=== PATIENT | male | born 1955 | race Caucasian/White ===

== ENCOUNTER 2017-10-12 09:18 | Inpatient (IN) | payer MEDICAID ==
[~2017-10-12] VITALS: Ht 177.8 cm; Wt 109.0 kg
[~2017-10-12 09:18] MED LIST: HYDR-565 PO; HYDR-569 PO; ONDA4TAB9 PO
[2017-10-12 09:40] LABS: BASOPHILS % (AUTO) 0.3 % (0-1); EOSINOPHILS # (AUTO) 0.1 X10'3 (0-0.9); EOSINOPHILS % (AUTO) 1.7 % (0-6); HEMATOCRIT 32.9 % (42.0-52.0); HEMOGLOBIN 11.3 g/dl (14.0-17.9); LYMPHOCYTES # (AUTO) 0.8 X10'3 (1.1-4.8); LYMPHOCYTES % (AUTO) 9.4 % (21-51); MEAN CORPUSCULAR HEMOGLOBIN 31.6 PG (27.0-31.0); MEAN CORPUSCULAR HGB CONC 34.4 % (33.0-36.5); MEAN PLATELET VOLUME 7.8 FL (7.4-10.4); MONOCYTES # (AUTO) 0.7 X10'3 (0-0.9); MONOCYTES % (AUTO) 8.4 % (2-12); NEUTROPHILS # (AUTO) 6.7 X10'3 (1.8-7.7); NEUTROPHILS % (AUTO) 80.2 % (42-75); PLATELET COUNT 176 X10'3 (140-440); RED BLOOD COUNT 3.58 X10'6 (4.70-6.10); RED CELL DISTRIBUTION WIDTH 13.3 % (11.5-14.5); WHITE BLOOD COUNT 8.4 X10'3 (4.5-11.0)
[2017-10-12] MEDS ORDERED: dextrose 5%-normal saline 1,000 ML IV ONE (09:40)
[2017-10-12 09:50] LABS: INR 1.1 INR; PARTIAL THROMBOPLASTIN TIME 28 SECONDS (22-32); PROTHROMBIN TIME 11.1 SECONDS (9.0-12.0)
[2017-10-12 09:57] LABS: ALANINE AMINOTRANSFERASE 20 U/L (12-78); ALBUMIN 3.6 G/DL (3.4-5.0); ALBUMIN/GLOBULIN RATIO 0.9 (1.1-1.5); ALKALINE PHOSPHATASE 50 IU/L (46-116); ANION GAP 12 (8-16); ASPARTATE AMINO TRANSFERASE 37 U/L (10-37); BILIRUBIN,TOTAL 1.7 MG/DL (0.1-1.0); BLOOD UREA NITROGEN 49 MG/DL (7-18); BUN/CREATININE RATIO 29.7 (5.4-32.0); CALCIUM 9.1 MG/DL (8.5-10.1); CHLORIDE 98 MMOL/L (99-107); CREATININE 1.65 MG/DL (0.60-1.10); GLUCOSE 129 MG/DL (70-104); POTASSIUM 4.5 MMOL/L (3.5-5.1); SODIUM 132 MMOL/L (135-145); TOTAL PROTEIN 7.6 G/DL (6.4-8.2); eGFR 43 ML/MIN
[2017-10-12] MEDS ORDERED: LISI40TA4 PO (10:42)
[2017-10-12] MEDS ORDERED: GLIP10TA11 PO (10:42)
[2017-10-12] MEDS ORDERED: METO100T7 PO (10:42)
[2017-10-12] MEDS ORDERED: METF500T PO (10:42)
[2017-10-12] MEDS ORDERED: ATOR20TA PO (10:42)
[2017-10-12] MEDS ORDERED: AMLO2.5T2 PO (10:42)
[2017-10-12] MEDS ORDERED: ondansetron/PF 4mg/2ml inj IV PRN (12:45)
[2017-10-12] MEDS ORDERED: HYDROmorphone 1 mg/ml syringe IV PRN (12:45)
[2017-10-12] MEDS ORDERED: potassium Cl 40MEQ/NS 500ml 500 ML IV PRN ×2 (12:45)
[2017-10-12] MEDS ORDERED: magnesium 4gm in 100ml NS 100 ML IV PRN (12:45)
[2017-10-12] MEDS ORDERED: HYDROcodone/acetaminophen 5mg/325mg tablet PO PRN (12:45)
[2017-10-12] MEDS ORDERED: acetaminophen 325mg tablet PO PRN (12:45)
[2017-10-12] MEDS ORDERED: potassium Cl 20 mEq SR tablet PO PRN ×2 (12:45)
[2017-10-12] MEDS ORDERED: magnesium Cl slow-release 64mg tablet PO PRN (12:45)
[2017-10-12] MEDS ORDERED: magnesium 1gm/100ml D5W IVPB 100 ML IV PRN (12:45)
[2017-10-12 14:00] VITALS: BP 92/69
[2017-10-12] MEDS ORDERED: MESSAGE TO PHARMACY PO ONE (15:05)
[2017-10-12] MEDS ORDERED: HYDROcodone/acetaminophen 10/325mg tab PO PRN (15:05)
[2017-10-12] MEDS ORDERED: dextrose 50%-water 50ml dispensing syringe IV PRN ×2 (15:05)
[2017-10-12] MEDS ORDERED: glucagon, human recombinant 1mg kit SUBCUT PRN (15:05)
[2017-10-12] MEDS ORDERED: dextrose ORAL solution 15 GM/59 ML bottle PO PRN ×2 (15:05)
[2017-10-12 15:11] LABS: HEMOGLOBIN A1C 7.3 % (4.5-6.2)
[2017-10-12] MEDS: normal saline 1000ml 1,000 ML IV SCH (16:54)
[2017-10-12 18:00] VITALS: BP 135/82
[2017-10-12] MEDS: HYDROcodone/acetaminophen 10/325mg tab PO PRN ×2 (18:59→23:07)
[2017-10-12 20:00] VITALS: BP 138/82
[2017-10-12] MEDS: insulin glargine (Lantus) pen - multi-dose SQ SCH (21:00)
[2017-10-12] MEDS: metoprolol tartrate 50mg tablet PO SCH (21:08)
[2017-10-12] MEDS: magnesium hydroxide 30ml (MOM) UD suspension PO PRN (21:08)
[2017-10-12 22:00] VITALS: BP 149/74
[2017-10-13] VITALS (7 sets, daily range): BP systolic 103–127; BP diastolic 56–75
[2017-10-13] MEDS: HYDROcodone/acetaminophen 10/325mg tab PO PRN ×2 (05:25→21:06)
[2017-10-13 07:08] LABS: BASOPHILS % (AUTO) 0.8 % (0-1); EOSINOPHILS # (AUTO) 0.2 X10'3 (0-0.9); HEMATOCRIT 29.4 % (42.0-52.0); HEMOGLOBIN 10.1 g/dl (14.0-17.9); LYMPHOCYTES # (AUTO) 1.1 X10'3 (1.1-4.8); LYMPHOCYTES % (AUTO) 17.6 % (21-51); MEAN CORPUSCULAR HEMOGLOBIN 31.7 PG (27.0-31.0); MEAN CORPUSCULAR HGB CONC 34.2 % (33.0-36.5); MEAN CORPUSCULAR VOLUME 92.4 FL (78-98); MEAN PLATELET VOLUME 8.1 FL (7.4-10.4); MONOCYTES # (AUTO) 0.7 X10'3 (0-0.9); MONOCYTES % (AUTO) 10.5 % (2-12); NEUTROPHILS # (AUTO) 4.4 X10'3 (1.8-7.7); NEUTROPHILS % (AUTO) 68.1 % (42-75); PLATELET COUNT 163 X10'3 (140-440); RED BLOOD COUNT 3.18 X10'6 (4.70-6.10); RED CELL DISTRIBUTION WIDTH 13.2 % (11.5-14.5); WHITE BLOOD COUNT 6.4 X10'3 (4.5-11.0)
[2017-10-13 07:41] LABS: ANION GAP 11 (8-16); BLOOD UREA NITROGEN 48 MG/DL (7-18); BUN/CREATININE RATIO 27.6 (5.4-32.0); CALCIUM 8.4 MG/DL (8.5-10.1); CHLORIDE 100 MMOL/L (99-107); CREATININE 1.74 MG/DL (0.60-1.10); GLUCOSE 230 MG/DL (70-104); MAGNESIUM 1.8 MG/DL (1.5-2.4); POTASSIUM 4.8 MMOL/L (3.5-5.1); SODIUM 134 MMOL/L (135-145); TOTAL CARBON DIOXIDE 23.3 MMOL/L (24-32); eGFR 40 ML/MIN
[2017-10-13] MEDS: K and/or MAG REPLACEMENT MC SCH (08:00)
[2017-10-13] MEDS: insulin Lispro (HumaLOG) vial - multi-dose SQ SCH ×3 (09:00→18:57)
[2017-10-13] MEDS: atorvastatin 20mg tablet PO SCH (09:02)
[2017-10-13] MEDS: metoprolol tartrate 50mg tablet PO SCH ×2 (09:03→19:58)
[2017-10-13] MEDS: amLODIPine 2.5mg tablet PO SCH (09:03)
[2017-10-13] MEDS: lisinopril 20mg tablet PO SCH (09:03)
[2017-10-13] MEDS: magnesium hydroxide 30ml (MOM) UD suspension PO PRN (19:57)
[2017-10-13] MEDS: insulin glargine (Lantus) pen - multi-dose SQ SCH (21:09)
[2017-10-14] MEDS: HYDROcodone/acetaminophen 10/325mg tab PO PRN (04:56)
[2017-10-14 05:59] LABS: BASOPHILS # (AUTO) 0.1 X10'3 (0-0.2); BASOPHILS % (AUTO) 1.3 % (0-1); EOSINOPHILS # (AUTO) 0.4 X10'3 (0-0.9); EOSINOPHILS % (AUTO) 5.6 % (0-6); HEMATOCRIT 31.1 % (42.0-52.0); HEMOGLOBIN 10.9 g/dl (14.0-17.9); LYMPHOCYTES % (AUTO) 28.2 % (21-51); MEAN CORPUSCULAR HEMOGLOBIN 32.1 PG (27.0-31.0); MEAN CORPUSCULAR HGB CONC 34.9 % (33.0-36.5); MEAN PLATELET VOLUME 8.5 FL (7.4-10.4); MONOCYTES # (AUTO) 0.7 X10'3 (0-0.9); MONOCYTES % (AUTO) 10.3 % (2-12); NEUTROPHILS % (AUTO) 54.6 % (42-75); PLATELET COUNT 199 X10'3 (140-440); RED BLOOD COUNT 3.38 X10'6 (4.70-6.10); RED CELL DISTRIBUTION WIDTH 12.4 % (11.5-14.5); WHITE BLOOD COUNT 7.2 X10'3 (4.5-11.0)
[2017-10-14 06:40] LABS: ALBUMIN 3.3 G/DL (3.4-5.0); ANION GAP 9 (8-16); BLOOD UREA NITROGEN 50 MG/DL (7-18); BUN/CREATININE RATIO 32.7 (5.4-32.0); CALCIUM 8.7 MG/DL (8.5-10.1); CHLORIDE 99 MMOL/L (99-107); CREATININE 1.53 MG/DL (0.60-1.10); GLUCOSE 132 MG/DL (70-104); MAGNESIUM 1.9 MG/DL (1.5-2.4); POTASSIUM 4.9 MMOL/L (3.5-5.1); SODIUM 132 MMOL/L (135-145); TOTAL CARBON DIOXIDE 23.6 MMOL/L (24-32); eGFR 47 ML/MIN
[2017-10-14 07:13] VITALS: BP 135/77
[2017-10-14 08:00] VITALS: BP_SYST 114; BP_SYST 118; BP_SYST 132; BP_DIAS 66; BP_DIAS 67; BP_DIAS 75
[2017-10-14] MEDS: K and/or MAG REPLACEMENT MC SCH (08:00)
[2017-10-14] MEDS: amLODIPine 2.5mg tablet PO SCH (08:21)
[2017-10-14] MEDS: metoprolol tartrate 50mg tablet PO SCH ×2 (08:21→19:11)
[2017-10-14] MEDS: atorvastatin 20mg tablet PO SCH (08:21)
[2017-10-14] MEDS: lisinopril 20mg tablet PO SCH (08:22)
[2017-10-14] MEDS: insulin Lispro (HumaLOG) vial - multi-dose SQ SCH ×3 (08:50→19:11)
[2017-10-14 10:00] VITALS: BP 118/67
[2017-10-14] MEDS: normal saline 1000ml 1,000 ML IV SCH (12:43)
[2017-10-14 18:00] VITALS: BP 145/86
[2017-10-14] MEDS: magnesium hydroxide 30ml (MOM) UD suspension PO PRN (19:19)
[2017-10-14 20:00] VITALS: BP_SYST 100; BP_SYST 122; BP_DIAS 60; BP_DIAS 71
[2017-10-14] MEDS: insulin glargine (Lantus) pen - multi-dose SQ SCH (20:56)
[2017-10-14 22:00] VITALS: BP 122/71
[2017-10-15] MEDS: HYDROcodone/acetaminophen 10/325mg tab PO PRN (04:39)
[2017-10-15 06:00] VITALS: BP 156/81
[2017-10-15 06:19] LABS: ALBUMIN 3.1 G/DL (3.4-5.0); ANION GAP 6 (8-16); BLOOD UREA NITROGEN 42 MG/DL (7-18); BUN/CREATININE RATIO 30.9 (5.4-32.0); CHLORIDE 100 MMOL/L (99-107); CREATININE 1.36 MG/DL (0.60-1.10); GLUCOSE 148 MG/DL (70-104); MAGNESIUM 1.8 MG/DL (1.5-2.4); SODIUM 133 MMOL/L (135-145); TOTAL CARBON DIOXIDE 27.3 MMOL/L (24-32); eGFR 53 ML/MIN
[2017-10-15 06:22] LABS: BASOPHILS # (AUTO) 0.1 X10'3 (0-0.2); BASOPHILS % (AUTO) 1.3 % (0-1); EOSINOPHILS # (AUTO) 0.4 X10'3 (0-0.9); EOSINOPHILS % (AUTO) 5.6 % (0-6); HEMATOCRIT 30.2 % (42.0-52.0); HEMOGLOBIN 10.6 g/dl (14.0-17.9); LYMPHOCYTES # (AUTO) 1.6 X10'3 (1.1-4.8); LYMPHOCYTES % (AUTO) 24.3 % (21-51); MEAN CORPUSCULAR HEMOGLOBIN 32.5 PG (27.0-31.0); MEAN CORPUSCULAR HGB CONC 35.1 % (33.0-36.5); MEAN CORPUSCULAR VOLUME 92.6 FL (78-98); MEAN PLATELET VOLUME 7.9 FL (7.4-10.4); MONOCYTES # (AUTO) 0.7 X10'3 (0-0.9); NEUTROPHILS # (AUTO) 3.7 X10'3 (1.8-7.7); NEUTROPHILS % (AUTO) 57.8 % (42-75); PLATELET COUNT 188 X10'3 (140-440); RED BLOOD COUNT 3.26 X10'6 (4.70-6.10); RED CELL DISTRIBUTION WIDTH 11.8 % (11.5-14.5); WHITE BLOOD COUNT 6.5 X10'3 (4.5-11.0)
[2017-10-15] MEDS: atorvastatin 20mg tablet PO SCH (07:54)
[2017-10-15] MEDS: amLODIPine 2.5mg tablet PO SCH (07:55)
[2017-10-15] MEDS: lisinopril 20mg tablet PO SCH (07:55)
[2017-10-15] MEDS: metoprolol tartrate 50mg tablet PO SCH (07:55)
[2017-10-15] MEDS: K and/or MAG REPLACEMENT MC SCH (08:00)
[2017-10-15] MEDS: insulin Lispro (HumaLOG) vial - multi-dose SQ SCH ×2 (08:55→14:12)
[2017-10-15] MEDS ORDERED: GLIP5TAB13 PO (10:40)
[2017-10-15] MEDS ORDERED: GABA100C PO (10:40)
== END 2017-10-15 15:00 | disposition home health service (06) | DRG 420 ==
LOC: ER 09:19 → ED HOLD 12:43 → ORTHO 4S 14:04
PROVIDERS: ADMIT Internal Medicine; ATTEND Family Medicine
DX: E11.649 Type 2 diabetes mellitus with hypoglycemia without coma (principal); E78.00 Pure hypercholesterolemia, unspecified; E78.5 Hyperlipidemia, unspecified; I10 Essential (primary) hypertension; M54.30 Sciatica, unspecified side; S40.011A Contusion of right shoulder, initial encounter; W01.0XXA Fall on same level from slipping, tripping and stumbling without subsequent striking against object, initial encounter; R29.6 Repeated falls; S42.201D Unspecified fracture of upper end of right humerus, subsequent encounter for fracture with routine healing; Y93.89 Activity, other specified; Y92.89 Other specified places as the place of occurrence of the external cause; Y99.8 Other external cause status; Z79.899 Other long term (current) drug therapy; Z79.84 Long term (current) use of oral hypoglycemic drugs
CPT/HCPCS: 36415; 70450; 73020; 73030; 73502; 80048; 80053; 82948; 83036; 83735; 85025; 85610; 85730; 87070; 96365; 97110; 97116; 97161; 99285; A6258; J1815; J7030; J7042

== ENCOUNTER 2020-01-23 10:55 | Emergency (ER) | payer MEDICAID ==
[~2020-01-23] VITALS: Ht 185.4 cm; Wt 145.4 kg
[~2020-01-23 10:55] MED LIST changes: +AMLO2.5T2 PO; +ATOR20TA PO; +GABA100C PO; +GLIP5TAB13 PO; -HYDR-565 PO; -HYDR-569 PO; +LISI40TA4 PO; +METF500T PO; +METO100T7 PO; -ONDA4TAB9 PO
--- NOTE | 2020-01-23 11:20 | NUR ---
patient eating turkey sandwhich and drinking orange juice and milk, aware
--- NOTE | 2020-01-23 11:32 | NUR ---
patient ate whole turkey sandwhich, 120 ml oj, 240 ml milk
--- NOTE | 2020-01-23 11:33 | NUR ---
to ct scan
[2020-01-23 11:53] LABS: BASOPHILS # (AUTO) 0.1 X10'3 (0-0.2); BASOPHILS % (AUTO) 0.8 % (0-1); EOSINOPHILS # (AUTO) 0.2 X10'3 (0-0.9); EOSINOPHILS % (AUTO) 2.6 % (0-6); HEMATOCRIT 38.9 % (42.0-52.0); HEMOGLOBIN 13.3 g/dl (14.0-17.9); LYMPHOCYTES # (AUTO) 1.3 X10'3 (1.1-4.8); LYMPHOCYTES % (AUTO) 16.2 % (21-51); MEAN CORPUSCULAR HEMOGLOBIN 31.8 PG (27.0-31.0); MEAN CORPUSCULAR HGB CONC 34.2 g/dL (33.0-36.5); MEAN PLATELET VOLUME 7.8 FL (7.4-10.4); MONOCYTES # (AUTO) 0.4 X10'3 (0-0.9); MONOCYTES % (AUTO) 5.7 % (2-12); NEUTROPHILS # (AUTO) 5.9 X10'3 (1.8-7.7); NEUTROPHILS % (AUTO) 74.7 % (42-75); PLATELET COUNT 199 X10'3 (140-440); RED BLOOD COUNT 4.18 X10'6 (4.70-6.10); RED CELL DISTRIBUTION WIDTH 13.6 % (11.5-14.5); WHITE BLOOD COUNT 7.8 X10'3 (4.5-11.0)
[2020-01-23 12:02] LABS: CLARITY,URINE CLEAR (Clear); COLOR,URINE YELLOW (Yellow); GLUCOSE, URINE NEGATIVE (Neg); KETONES,URINE 15 mg/dl (Neg); LEUKOCYTE ESTERASE ,URINE NEGATIVE (Neg); NITRITES, URINE NEGATIVE (Neg); OCCULT BLOOD,URINE NEGATIVE (Neg); PH,URINE 5.5 (4.8-8.0); PROTEIN,URINE TRACE mg/dl (Neg)
[2020-01-23 12:04] LABS: ALANINE AMINOTRANSFERASE 24 U/L (12-78); ALBUMIN 4.1 G/DL (3.4-5.0); ALBUMIN/GLOBULIN RATIO 1.2 (1.1-1.5); ALKALINE PHOSPHATASE 49 IU/L (46-116); ANION GAP 13 (8-16); ASPARTATE AMINO TRANSFERASE 23 U/L (10-37); BILIRUBIN,TOTAL 0.8 MG/DL (0.1-1.0); BLOOD UREA NITROGEN 25 MG/DL (7-18); BUN/CREATININE RATIO 15.8 (5.4-32.0); CALCIUM 9.2 MG/DL (8.5-10.1); CHLORIDE 106 MMOL/L (99-107); CREATININE 1.58 MG/DL (0.60-1.10); GLUCOSE 77 MG/DL (70-104); POTASSIUM 4.7 MMOL/L (3.5-5.1); SODIUM 142 MMOL/L (135-145); TOTAL CARBON DIOXIDE 22.6 MMOL/L (24-32); TOTAL PROTEIN 7.5 G/DL (6.4-8.2); eGFR 45 ML/MIN
[2020-01-23 12:32] LABS: UA COLLECTION TYPE CLN CATCH MIDSTREAM
[2020-01-23 12:34] LABS: MUCUS STRANDS FEW /LPF (Neg)
[2020-01-23 12:35] LABS: SQUAMOUS EPITHELIAL CELL,UR FEW /LPF (FEW)
[2020-01-23 12:37] LABS: BACTERIA,URINE NONE SEEN /HPF (Neg); RBC,URINE NONE SEEN /HPF (0-2); WBC,URINE 0-4 /HPF (0-4)
--- NOTE | 2020-01-23 14:39 | NUR ---
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
[2020-01-23 14:54] VITALS: BP 159/89
== END 2020-01-23 14:45 | disposition home or self-care (01) ==
LOC: ER 10:56
DX: E11.649 Type 2 diabetes mellitus with hypoglycemia without coma (principal); E78.00 Pure hypercholesterolemia, unspecified; I10 Essential (primary) hypertension; Z79.899 Other long term (current) drug therapy
CPT/HCPCS: 36415; 70450; 80053; 81001; 82948; 85025; 99285

== ENCOUNTER 2020-08-18 02:14 | Emergency (ER) | payer MEDICAID ==
[~2020-08-18] VITALS: Ht 185.4 cm; Wt 138.0 kg
[~2020-08-18 02:14] MED LIST changes: +LISI40TA13 PO; -LISI40TA4 PO
[2020-08-18] MEDS ORDERED: DOCU100C40 PO (03:14)
[2020-08-18] MEDS ORDERED: ASPI-1265 PO (03:14)
[2020-08-18] MEDS ORDERED: Dextrose 10%-water IV solution 1,000 ML IV ONE (03:40)
[2020-08-18 04:25] LABS: BASOPHILS # (AUTO) 0.1 X10'3 (0-0.2); BASOPHILS % (AUTO) 1.5 % (0-1); EOSINOPHILS # (AUTO) 0.5 X10'3 (0-0.9); EOSINOPHILS % (AUTO) 7.8 % (0-6); HEMATOCRIT 39.6 % (42.0-52.0); HEMOGLOBIN 13.3 g/dl (14.0-17.9); LYMPHOCYTES # (AUTO) 1.6 X10'3 (1.1-4.8); LYMPHOCYTES % (AUTO) 24.3 % (21-51); MEAN CORPUSCULAR HEMOGLOBIN 31.8 PG (27.0-31.0); MEAN CORPUSCULAR HGB CONC 33.7 g/dL (33.0-36.5); MEAN CORPUSCULAR VOLUME 94.4 FL (78-98); MEAN PLATELET VOLUME 8.1 FL (7.4-10.4); MONOCYTES # (AUTO) 0.6 X10'3 (0-0.9); MONOCYTES % (AUTO) 9.2 % (2-12); NEUTROPHILS # (AUTO) 3.9 X10'3 (1.8-7.7); NEUTROPHILS % (AUTO) 57.2 % (42-75); PLATELET COUNT 176 X10'3 (140-440); RED BLOOD COUNT 4.19 X10'6 (4.70-6.10); RED CELL DISTRIBUTION WIDTH 14.1 % (11.5-14.5); WHITE BLOOD COUNT 6.7 X10'3 (4.5-11.0)
[2020-08-18 04:27] VITALS: BP 127/83
[2020-08-18 04:31] LABS: CLARITY,URINE CLEAR (Clear); COLOR,URINE YELLOW (Yellow); GLUCOSE, URINE NEGATIVE (Neg); KETONES,URINE NEGATIVE (Neg); LEUKOCYTE ESTERASE ,URINE NEGATIVE (Neg); NITRITES, URINE NEGATIVE (Neg); OCCULT BLOOD,URINE NEGATIVE (Neg); PROTEIN,URINE TRACE mg/dl (Neg); UROBILINOGEN,URINE 0.2 E.U/dL (0.2-1.0)
[2020-08-18 04:40] LABS: ALANINE AMINOTRANSFERASE 22 U/L (12-78); ALBUMIN 4.1 G/DL (3.4-5.0); ALBUMIN/GLOBULIN RATIO 1.1 (1.1-1.5); ALKALINE PHOSPHATASE 40 IU/L (46-116); ANION GAP 14 (8-16); ASPARTATE AMINO TRANSFERASE 22 U/L (10-37); BILIRUBIN,TOTAL 0.8 MG/DL (0.1-1.0); BLOOD UREA NITROGEN 33 MG/DL (7-18); BUN/CREATININE RATIO 18.8 (5.4-32.0); CHLORIDE 104 MMOL/L (99-107); CREATININE 1.76 MG/DL (0.60-1.10); GLUCOSE 87 MG/DL (70-104); LIPASE 94 U/L (73-393); POTASSIUM 4.2 MMOL/L (3.5-5.1); SODIUM 141 MMOL/L (135-145); TOTAL PROTEIN 7.9 G/DL (6.4-8.2); eGFR 39 ML/MIN
[2020-08-18 04:51] LABS: UA COLLECTION TYPE NON-SPECIFIED
[2020-08-18 04:52] LABS: WBC,URINE 0-4 /HPF (0-4)
[2020-08-18 04:53] LABS: BACTERIA,URINE NONE SEEN /HPF (Neg); HYALINE CASTS 0-3 /LPF (NEGATIVE); MUCUS STRANDS FEW /LPF (Neg); RBC,URINE NONE SEEN /HPF (0-2); SQUAMOUS EPITHELIAL CELL,UR FEW /LPF (FEW)
== END 2020-08-18 06:01 | disposition left against medical advice (07) ==
LOC: ER 02:15
DX: E11.649 Type 2 diabetes mellitus with hypoglycemia without coma (principal); E78.00 Pure hypercholesterolemia, unspecified; I10 Essential (primary) hypertension; E11.9 Type 2 diabetes mellitus without complications; Z79.82 Long term (current) use of aspirin; Z79.899 Other long term (current) drug therapy
CPT/HCPCS: 36415; 80053; 81001; 82948; 83690; 85025; 96365; 96366; 99284

== ENCOUNTER 2020-11-12 23:44 | Emergency (ER) | payer MEDICAID ==
[~2020-11-12] VITALS: Ht 185.4 cm; Wt 136.4 kg
[~2020-11-12 23:44] MED LIST changes: +ASPI-1265 PO; +DOCU100C40 PO; -GABA100C PO
[2020-11-13 03:13] VITALS: BP 149/90
== END 2020-11-13 03:14 | disposition home or self-care (01) ==
LOC: ER 23:45
DX: S80.02XA Contusion of left knee, initial encounter (principal); S80.212A Abrasion, left knee, initial encounter; R07.89 Other chest pain; E78.00 Pure hypercholesterolemia, unspecified; I10 Essential (primary) hypertension; E11.9 Type 2 diabetes mellitus without complications; Z79.82 Long term (current) use of aspirin; Z79.899 Other long term (current) drug therapy; W01.0XXA Fall on same level from slipping, tripping and stumbling without subsequent striking against object, initial encounter; Y93.89 Activity, other specified; Y92.89 Other specified places as the place of occurrence of the external cause; Y99.8 Other external cause status
CPT/HCPCS: 71046; 73080; 99284

== ENCOUNTER 2022-06-21 23:53 | Emergency (ER) | payer MEDICAID ==
[~2022-06-21] VITALS: Ht 185.4 cm; Wt 115.9 kg
[2022-06-22 01:54] LABS: CLARITY,URINE CLEAR (Clear); COLOR,URINE STRAW (Yellow); GLUCOSE, URINE NEGATIVE (Neg); KETONES,URINE NEGATIVE (Neg); LEUKOCYTE ESTERASE ,URINE NEGATIVE (Neg); NITRITES, URINE NEGATIVE (Neg); OCCULT BLOOD,URINE NEGATIVE (Neg); PH,URINE 6.5 (4.8-8.0); PROTEIN,URINE NEGATIVE (Neg); UROBILINOGEN,URINE 0.2 E.U/dL (0.2-1.0)
[2022-06-22 01:58] LABS: UA COLLECTION TYPE URINAL
--- NOTE | 2022-06-22 01:58 | NUR ---
Artem [phone]
[2022-06-22] MEDS ORDERED: DEXTROSE 15 GM of carb/4 tabs (each vial/BOTTLE has 4 tablets) ONE ×2 (02:38→02:39)
[2022-06-22 02:56] LABS: BASOPHILS # (AUTO) 0.1 X10'3 (0-0.2); BASOPHILS % (AUTO) 0.9 % (0-1); EOSINOPHILS # (AUTO) 0.2 X10'3 (0-0.9); EOSINOPHILS % (AUTO) 2.8 % (0-6); HEMATOCRIT 39.9 % (42.0-52.0); HEMOGLOBIN 13.5 g/dl (14.0-17.9); LYMPHOCYTES # (AUTO) 2.1 X10'3 (1.1-4.8); LYMPHOCYTES % (AUTO) 25.8 % (21-51); MEAN CORPUSCULAR HEMOGLOBIN 31.3 PG (27.0-31.0); MEAN CORPUSCULAR HGB CONC 33.7 g/dL (33.0-36.5); MEAN CORPUSCULAR VOLUME 92.9 FL (78-98); MEAN PLATELET VOLUME 7.8 FL (7.4-10.4); MONOCYTES # (AUTO) 0.6 X10'3 (0-0.9); MONOCYTES % (AUTO) 7.2 % (2-12); NEUTROPHILS # (AUTO) 5.1 X10'3 (1.8-7.7); NEUTROPHILS % (AUTO) 63.3 % (42-75); PLATELET COUNT 187 X10'3 (140-440); RED CELL DISTRIBUTION WIDTH 13.5 % (11.5-14.5); WHITE BLOOD COUNT 8.1 X10'3 (4.5-11.0)
[2022-06-22 03:00] VITALS: BP 133/66
[2022-06-22 03:07] LABS: ALANINE AMINOTRANSFERASE 21 U/L (12-78); ALBUMIN 4.2 G/DL (3.4-5.0); ALBUMIN/GLOBULIN RATIO 1.1 (1.1-1.5); ALKALINE PHOSPHATASE 62 IU/L (46-116); ANION GAP 14 (8-16); ASPARTATE AMINO TRANSFERASE 19 U/L (10-37); BILIRUBIN,TOTAL 0.7 MG/DL (0.1-1.0); BLOOD UREA NITROGEN 31 MG/DL (7-18); BUN/CREATININE RATIO 19.6 (10.0-20.0); CALCIUM 8.9 MG/DL (8.5-10.1); CHLORIDE 105 MMOL/L (99-107); CREATININE 1.58 MG/DL (0.60-1.10); GLUCOSE 70 MG/DL (70-104); POTASSIUM 4.4 MMOL/L (3.5-5.1); SODIUM 140 MMOL/L (135-145); TOTAL CARBON DIOXIDE 21.5 MMOL/L (24-32); TOTAL PROTEIN 8.1 G/DL (6.4-8.2); eGFR 44 ML/MIN
[2022-06-22 03:17] LABS: HEMOGLOBIN A1C 6.1 % (4.5-6.2)
== END 2022-06-22 05:49 | disposition home or self-care (01) ==
LOC: ER 23:54
DX: E11.649 Type 2 diabetes mellitus with hypoglycemia without coma (principal); I10 Essential (primary) hypertension; E78.00 Pure hypercholesterolemia, unspecified; Z79.899 Other long term (current) drug therapy; Z79.1 Long term (current) use of non-steroidal anti-inflammatories (NSAID); Z79.82 Long term (current) use of aspirin
CPT/HCPCS: 36415; 80053; 81003; 82948; 83036; 85025; 99284

== ENCOUNTER 2023-11-20 23:50 | Emergency (ER) | payer MEDICARE, MEDICAID ==
[~2023-11-20] VITALS: Ht 182.9 cm; Wt 125.0 kg
[~2023-11-20 23:50] MED LIST changes: -AMLO2.5T2 PO; -ASPI-1265 PO; +FLO0.1T PO; -GLIP5TAB13 PO; +LISI2.5T14 PO; -LISI40TA13 PO; -METF500T PO; +METO-395 PO; -METO100T7 PO; +MIDO5TAB4 PO; +SITA50TA PO; +THIA100T66 PO
[2023-11-21 00:34] LABS: BASOPHILS # (AUTO) 0.2 X10'3 (0-0.2); BASOPHILS % (AUTO) 1.3 % (0-1); EOSINOPHILS # (AUTO) 1.1 X10'3 (0-0.9); EOSINOPHILS % (AUTO) 9.1 % (0-6); HEMATOCRIT 36.3 % (42.0-52.0); HEMOGLOBIN 12.2 g/dl (14.0-17.9); LYMPHOCYTES # (AUTO) 2.1 X10'3 (1.1-4.8); LYMPHOCYTES % (AUTO) 18.1 % (21-51); MEAN CORPUSCULAR HEMOGLOBIN 29.3 PG (27.0-31.0); MEAN CORPUSCULAR HGB CONC 33.7 g/dL (33.0-36.5); MEAN CORPUSCULAR VOLUME 86.9 FL (78-98); MEAN PLATELET VOLUME 8.1 FL (7.4-10.4); MONOCYTES # (AUTO) 1.2 X10'3 (0-0.9); MONOCYTES % (AUTO) 9.9 % (2-12); NEUTROPHILS # (AUTO) 7.3 X10'3 (1.8-7.7); NEUTROPHILS % (AUTO) 61.6 % (42-75); PLATELET COUNT 173 X10'3 (140-440); RED BLOOD COUNT 4.18 X10'6 (4.70-6.10); RED CELL DISTRIBUTION WIDTH 13.7 % (11.5-14.5); WHITE BLOOD COUNT 11.9 X10'3 (4.5-11.0)
[2023-11-21 01:15] LABS: ALANINE AMINOTRANSFERASE 12 U/L (12-78); ALBUMIN 4.2 G/DL (3.4-5.0); ALBUMIN/GLOBULIN RATIO 1.2 (1.1-1.5); ALKALINE PHOSPHATASE 53 IU/L (46-116); ANION GAP 14 (8-16); ASPARTATE AMINO TRANSFERASE 22 U/L (10-37); BILIRUBIN,TOTAL 0.7 MG/DL (0.1-1.0); BLOOD UREA NITROGEN 54 MG/DL (7-18); BUN/CREATININE RATIO 19.8 (10.0-20.0); CALCIUM 8.6 MG/DL (8.5-10.1); CHLORIDE 101 MMOL/L (99-107); CREATININE 2.73 MG/DL (0.60-1.10); GLUCOSE 111 MG/DL (70-104); SODIUM 135 MMOL/L (135-145); TOTAL CARBON DIOXIDE 20.5 MMOL/L (24-32); TOTAL PROTEIN 7.6 G/DL (6.4-8.2); eCRCL 29 ML/MIN; eGFR 23 ML/MIN
[2023-11-21 01:16] LABS: PRO BRAIN NATRIURETIC PEPTIDE 260 PG/ML (0-125)
[2023-11-21 01:21] LABS: POTASSIUM 4.6 MMOL/L (3.5-5.1)
[2023-11-21 01:47] LABS: BILIRUBIN,URINE NEGATIVE (Neg); CLARITY,URINE CLEAR (Clear); COLOR,URINE YELLOW (Yellow); GLUCOSE, URINE 500 mg/dl (Neg); KETONES,URINE TRACE mg/dl (Neg); LEUKOCYTE ESTERASE ,URINE NEGATIVE (Neg); NITRITES, URINE NEGATIVE (Neg); OCCULT BLOOD,URINE NEGATIVE (Neg); PH,URINE 5.5 (4.8-8.0); PROTEIN,URINE NEGATIVE (Neg); UROBILINOGEN,URINE 0.2 E.U/dL (0.2-1.0)
[2023-11-21 01:49] LABS: UA COLLECTION TYPE URINAL
[2023-11-21] MEDS: normal saline 1000ml 1,000 ML IV ONE (02:01)
[2023-11-21] MEDS: acetaminophen 325mg tablet PO ONE (02:09)
[2023-11-21 02:52] VITALS: BP 113/65; PULSE 81; RESP 13; TEMP 97.7; O2SAT 98
[2023-11-21 03:34] LABS: PLATELET ESTIMATE NORMAL; TOTAL CELLS COUNTED 100
== END 2023-11-21 02:54 | disposition home or self-care (01) ==
LOC: ER 23:50
DX: S93.402A Sprain of unspecified ligament of left ankle, initial encounter (principal); E78.00 Pure hypercholesterolemia, unspecified; I10 Essential (primary) hypertension; E11.9 Type 2 diabetes mellitus without complications; E86.0 Dehydration; Z79.899 Other long term (current) drug therapy; W19.XXXA Unspecified fall, initial encounter; Y93.89 Activity, other specified; Y92.89 Other specified places as the place of occurrence of the external cause; Y99.8 Other external cause status
CPT/HCPCS: 36415; 71045; 73610; 80053; 81003; 82948; 83880; 84484; 85007; 85025; 93005; 96360; 99285; J7030; L4360

== ENCOUNTER 2024-01-30 10:05 | Inpatient (IN) | payer MEDICARE, MEDICAID ==
[~2024-01-30] VITALS: Ht 182.9 cm; Wt 119.0 kg
[2024-01-30 11:00] LABS: BILIRUBIN,URINE NEGATIVE (Neg); CLARITY,URINE CLEAR (Clear); COLOR,URINE YELLOW (Yellow); GLUCOSE, URINE >=1000 mg/dl (Neg); KETONES,URINE TRACE mg/dl (Neg); LEUKOCYTE ESTERASE ,URINE NEGATIVE (Neg); NITRITES, URINE NEGATIVE (Neg); OCCULT BLOOD,URINE NEGATIVE (Neg); PH,URINE 5.5 (4.8-8.0); PROTEIN,URINE NEGATIVE (Neg); UROBILINOGEN,URINE 0.2 E.U/dL (0.2-1.0)
[2024-01-30 11:01] LABS: UA COLLECTION TYPE STRAIGHT CATH
[2024-01-30 11:02] LABS: BASOPHILS # (AUTO) 0.1 X10'3 (0-0.2); BASOPHILS % (AUTO) 0.9 % (0-1); EOSINOPHILS # (AUTO) 0.4 X10'3 (0-0.9); HEMATOCRIT 36.1 % (42.0-52.0); HEMOGLOBIN 12.1 g/dl (14.0-17.9); LYMPHOCYTES # (AUTO) 1.4 X10'3 (1.1-4.8); LYMPHOCYTES % (AUTO) 18.9 % (21-51); MEAN CORPUSCULAR HEMOGLOBIN 29.3 PG (27.0-31.0); MEAN CORPUSCULAR HGB CONC 33.6 g/dL (33.0-36.5); MEAN CORPUSCULAR VOLUME 87.2 FL (78-98); MEAN PLATELET VOLUME 8.1 FL (7.4-10.4); MONOCYTES # (AUTO) 0.7 X10'3 (0-0.9); NEUTROPHILS # (AUTO) 4.8 X10'3 (1.8-7.7); NEUTROPHILS % (AUTO) 65.2 % (42-75); PLATELET COUNT 176 X10'3 (140-440); RED BLOOD COUNT 4.14 X10'6 (4.70-6.10); RED CELL DISTRIBUTION WIDTH 13.8 % (11.5-14.5); WHITE BLOOD COUNT 7.3 X10'3 (4.5-11.0)
[2024-01-30 11:06] LABS: HYALINE CASTS 0-3 /LPF (NEGATIVE); RBC,URINE NONE SEEN /HPF (0-2); SQUAMOUS EPITHELIAL CELL,UR NONE SEEN /LPF (FEW); WBC,URINE 0-4 /HPF (0-4)
[2024-01-30 11:07] LABS: BACTERIA,URINE NONE SEEN /HPF (Neg)
[2024-01-30 11:18] LABS: D-DIMER 7.93 MG/L FEU (0-0.50)
[2024-01-30 11:25] LABS: ALANINE AMINOTRANSFERASE 16 U/L (12-78); ALBUMIN 4.4 G/DL (3.4-5.0); ALKALINE PHOSPHATASE 79 IU/L (46-116); ANION GAP 10 (8-16); ASPARTATE AMINO TRANSFERASE 23 U/L (10-37); BILIRUBIN,TOTAL 1.8 MG/DL (0.1-1.0); BLOOD UREA NITROGEN 49 MG/DL (7-18); BUN/CREATININE RATIO 25.5 (10.0-20.0); CALCIUM 9.4 MG/DL (8.5-10.1); CHLORIDE 105 MMOL/L (99-107); CREATININE 1.92 MG/DL (0.60-1.10); GLUCOSE 97 MG/DL (70-104); POTASSIUM 4.4 MMOL/L (3.5-5.1); SODIUM 138 MMOL/L (135-145); TOTAL CARBON DIOXIDE 22.7 MMOL/L (24-32); TOTAL PROTEIN 8.7 G/DL (6.4-8.2); eCRCL 41 ML/MIN; eGFR 35 ML/MIN
[2024-01-30] MEDS: ringers solution, lacted 1,000 ML IV ONE (12:33)
[2024-01-30 14:23] LABS: ALBUMIN 4.2 G/DL (3.4-5.0); ANION GAP 8 (8-16); BLOOD UREA NITROGEN 49 MG/DL (7-18); BUN/CREATININE RATIO 27.1 (10.0-20.0); CALCIUM 9.1 MG/DL (8.5-10.1); CHLORIDE 105 MMOL/L (99-107); CREATININE 1.81 MG/DL (0.60-1.10); GLUCOSE 99 MG/DL (70-104); POTASSIUM 4.4 MMOL/L (3.5-5.1); SODIUM 138 MMOL/L (135-145); TOTAL CARBON DIOXIDE 24.6 MMOL/L (24-32); eCRCL 43 ML/MIN; eGFR 38 ML/MIN
[2024-01-30] MEDS ORDERED: iohexol 350MG/ML 100ml bottle IV ONE (14:47)
[2024-01-30 16:42] LABS: URINE AMPHETAMINE SCREEN NEGATIVE (Neg); URINE BARBITUATE SCREEN NEGATIVE (Neg); URINE BENZODIAZEPINES SCREEN NEGATIVE (Neg); URINE CANNABINOID SCREEN NEGATIVE (Neg); URINE COCAINE SCREEN NEGATIVE (Neg); URINE METHADONE SCREEN NEGATIVE (Neg); URINE OPIATE SCREEN NEGATIVE (Neg); URINE PHENCYCLIDINE SCREEN NEGATIVE (Neg)
[2024-01-30] MEDS ORDERED: potassium Cl 20 mEq SR tablet PO PRN ×2 (19:45)
[2024-01-30] MEDS ORDERED: magnesium sulf-water 2g/50mL 50 ML IV PRN (19:45)
[2024-01-30] MEDS ORDERED: morphine 2 MG/ML inj. syringe IV PRN (19:45)
[2024-01-30] MEDS ORDERED: magnesium Cl slow-release 64mg tablet PO PRN (19:45)
[2024-01-30] MEDS ORDERED: potassium Cl 40MEQ/1/2NS 520ml 520 ML IV PRN (19:45)
[2024-01-30] MEDS ORDERED: magnesium sulf-water 4G/100mL 100 ML IV PRN (19:45)
[2024-01-30] MEDS: K and/or MAG REPLACEMENT MC SCH (20:00)
[2024-01-30] MEDS ORDERED: dextrose 50%-water 50ml dispensing syringe IV PRN (21:45)
[2024-01-30] MEDS ORDERED: DEXTROSE 15 GM of carb/4 tabs (each vial/BOTTLE has 4 tablets) PO PRN ×2 (21:45)
[2024-01-30] MEDS ORDERED: glucagon, human recombinant 1mg kit SUBCUT PRN (21:45)
[2024-01-30] MEDS: normal saline 1000ml 1,000 ML IV SCH (22:48)
[2024-01-30] MEDS: ampicillin/sulbac 3gm/NS 100ml 100 ML IV SCH (22:58)
[2024-01-30] MEDS: heparin, porcine 5000 units/ml vial SQ SCH (23:10)
[2024-01-30] MEDS: docusate sod 100mg capsule PO SCH (23:10)
[2024-01-30] MEDS: dextrose 50%-water 50ml dispensing syringe IV PRN (23:45)
[2024-01-31] VITALS (11 sets, daily range): BP systolic 101–177; BP diastolic 57–88; PULSE 67–84; RESP 15–23; TEMP 97.5–98.4; O2SAT 95–98
[2024-01-31] MEDS: ampicillin/sulbac 3gm/NS 100ml 100 ML IV SCH (05:11)
[2024-01-31 06:05] LABS: BASOPHILS # (AUTO) 0.1 X10'3 (0-0.2); BASOPHILS % (AUTO) 1.8 % (0-1); EOSINOPHILS # (AUTO) 0.3 X10'3 (0-0.9); EOSINOPHILS % (AUTO) 4.4 % (0-6); HEMATOCRIT 32.7 % (42.0-52.0); HEMOGLOBIN 11.2 g/dl (14.0-17.9); LYMPHOCYTES # (AUTO) 1.5 X10'3 (1.1-4.8); LYMPHOCYTES % (AUTO) 25.1 % (21-51); MEAN CORPUSCULAR HEMOGLOBIN 29.7 PG (27.0-31.0); MEAN CORPUSCULAR HGB CONC 34.1 g/dL (33.0-36.5); MEAN PLATELET VOLUME 8.2 FL (7.4-10.4); MONOCYTES # (AUTO) 0.7 X10'3 (0-0.9); MONOCYTES % (AUTO) 11.5 % (2-12); NEUTROPHILS # (AUTO) 3.5 X10'3 (1.8-7.7); NEUTROPHILS % (AUTO) 57.2 % (42-75); PLATELET COUNT 176 X10'3 (140-440); RED BLOOD COUNT 3.76 X10'6 (4.70-6.10); RED CELL DISTRIBUTION WIDTH 13.7 % (11.5-14.5)
[2024-01-31 06:13] LABS: ALANINE AMINOTRANSFERASE 13 U/L (12-78); ALBUMIN 3.7 G/DL (3.4-5.0); ALKALINE PHOSPHATASE 75 IU/L (46-116); ANION GAP 12 (8-16); ASPARTATE AMINO TRANSFERASE 19 U/L (10-37); BILIRUBIN,TOTAL 1.7 MG/DL (0.1-1.0); BLOOD UREA NITROGEN 43 MG/DL (7-18); BUN/CREATININE RATIO 27.4 (10.0-20.0); CHLORIDE 105 MMOL/L (99-107); CREATININE 1.57 MG/DL (0.60-1.10); GLUCOSE 82 MG/DL (70-104); MAGNESIUM 1.8 MG/DL (1.5-2.4); SODIUM 138 MMOL/L (135-145); TOTAL CARBON DIOXIDE 21.5 MMOL/L (24-32); TOTAL PROTEIN 7.4 G/DL (6.4-8.2); eCRCL 50 ML/MIN; eGFR 44 ML/MIN
[2024-01-31] MEDS: INSULIN LISPRO 100 UNIT/ML INSULN.PEN MULTI-DOSE SQ SCH ×2 (07:00→09:00)
[2024-01-31] MEDS: atorvastatin 20mg tablet PO SCH (10:23)
[2024-01-31] MEDS: insulin glargine (Lantus) pen - multi-dose SQ SCH (21:00)
[2024-02-01] VITALS (7 sets, daily range): BP systolic 106–189; BP diastolic 63–93; PULSE 71–99; RESP 15–19; TEMP 97.7–98.9; O2SAT 96–98
[2024-02-01] MEDS: ondansetron/PF 4mg/2ml inj IV PRN (02:06)
[2024-02-01 07:32] LABS: BASOPHILS # (AUTO) 0.1 X10'3 (0-0.2); BASOPHILS % (AUTO) 1.2 % (0-1); EOSINOPHILS # (AUTO) 0.1 X10'3 (0-0.9); EOSINOPHILS % (AUTO) 1.7 % (0-6); HEMATOCRIT 34.2 % (42.0-52.0); HEMOGLOBIN 11.8 g/dl (14.0-17.9); LYMPHOCYTES # (AUTO) 0.9 X10'3 (1.1-4.8); LYMPHOCYTES % (AUTO) 13.5 % (21-51); MEAN CORPUSCULAR HEMOGLOBIN 29.8 PG (27.0-31.0); MEAN CORPUSCULAR HGB CONC 34.6 g/dL (33.0-36.5); MEAN CORPUSCULAR VOLUME 86.2 FL (78-98); MEAN PLATELET VOLUME 8.3 FL (7.4-10.4); MONOCYTES # (AUTO) 0.6 X10'3 (0-0.9); MONOCYTES % (AUTO) 8.9 % (2-12); NEUTROPHILS # (AUTO) 4.8 X10'3 (1.8-7.7); NEUTROPHILS % (AUTO) 74.7 % (42-75); PLATELET COUNT 180 X10'3 (140-440); RED BLOOD COUNT 3.97 X10'6 (4.70-6.10); RED CELL DISTRIBUTION WIDTH 13.7 % (11.5-14.5); WHITE BLOOD COUNT 6.4 X10'3 (4.5-11.0)
[2024-02-01 08:37] LABS: ALANINE AMINOTRANSFERASE 12 U/L (12-78); ALBUMIN 3.7 G/DL (3.4-5.0); ALBUMIN/GLOBULIN RATIO 0.9 (1.1-1.5); ALKALINE PHOSPHATASE 75 IU/L (46-116); ANION GAP 10 (8-16); ASPARTATE AMINO TRANSFERASE 22 U/L (10-37); BILIRUBIN,TOTAL 1.8 MG/DL (0.1-1.0); BLOOD UREA NITROGEN 41 MG/DL (7-18); BUN/CREATININE RATIO 21.6 (10.0-20.0); CALCIUM 8.8 MG/DL (8.5-10.1); CHLORIDE 104 MMOL/L (99-107); GLUCOSE 135 MG/DL (70-104); MAGNESIUM 1.7 MG/DL (1.5-2.4); POTASSIUM 4.2 MMOL/L (3.5-5.1); SODIUM 142 MMOL/L (135-145); TOTAL CARBON DIOXIDE 27.8 MMOL/L (24-32); TOTAL PROTEIN 7.6 G/DL (6.4-8.2); eCRCL 41 ML/MIN; eGFR 36 ML/MIN
[2024-02-01] MEDS: acetaminophen 325mg tablet PO PRN (21:56)
[2024-02-02 07:00] VITALS: BP 167/90; PULSE 61; RESP 18; TEMP 97.9; O2SAT 96
[2024-02-02 07:33] LABS: BASOPHILS # (AUTO) 0.1 X10'3 (0-0.2); BASOPHILS % (AUTO) 1.9 % (0-1); EOSINOPHILS # (AUTO) 0.4 X10'3 (0-0.9); EOSINOPHILS % (AUTO) 6.8 % (0-6); HEMATOCRIT 31.9 % (42.0-52.0); HEMOGLOBIN 11.1 g/dl (14.0-17.9); LYMPHOCYTES # (AUTO) 1.4 X10'3 (1.1-4.8); LYMPHOCYTES % (AUTO) 22.1 % (21-51); MEAN CORPUSCULAR HEMOGLOBIN 30.2 PG (27.0-31.0); MEAN CORPUSCULAR HGB CONC 34.7 g/dL (33.0-36.5); MEAN CORPUSCULAR VOLUME 87.1 FL (78-98); MEAN PLATELET VOLUME 8.3 FL (7.4-10.4); MONOCYTES # (AUTO) 0.6 X10'3 (0-0.9); MONOCYTES % (AUTO) 9.3 % (2-12); NEUTROPHILS # (AUTO) 3.7 X10'3 (1.8-7.7); NEUTROPHILS % (AUTO) 59.9 % (42-75); PLATELET COUNT 155 X10'3 (140-440); RED BLOOD COUNT 3.66 X10'6 (4.70-6.10); RED CELL DISTRIBUTION WIDTH 13.6 % (11.5-14.5); WHITE BLOOD COUNT 6.2 X10'3 (4.5-11.0)
[2024-02-02 08:21] LABS: ALANINE AMINOTRANSFERASE 12 U/L (12-78); ALBUMIN 3.3 G/DL (3.4-5.0); ALBUMIN/GLOBULIN RATIO 0.9 (1.1-1.5); ALKALINE PHOSPHATASE 68 IU/L (46-116); ANION GAP 9 (8-16); ASPARTATE AMINO TRANSFERASE 23 U/L (10-37); BILIRUBIN,TOTAL 1.3 MG/DL (0.1-1.0); BLOOD UREA NITROGEN 33 MG/DL (7-18); CALCIUM 8.4 MG/DL (8.5-10.1); CHLORIDE 107 MMOL/L (99-107); CREATININE 1.65 MG/DL (0.60-1.10); GLUCOSE 82 MG/DL (70-104); MAGNESIUM 1.6 MG/DL (1.5-2.4); POTASSIUM 4.1 MMOL/L (3.5-5.1); SODIUM 141 MMOL/L (135-145); TOTAL CARBON DIOXIDE 25.3 MMOL/L (24-32); TOTAL PROTEIN 6.9 G/DL (6.4-8.2); eCRCL 48 ML/MIN; eGFR 42 ML/MIN
[2024-02-02 11:00] VITALS: BP 152/79; PULSE 69; RESP 16; TEMP 97.6; O2SAT 97
[2024-02-02] MEDS: morphine 2 MG/ML inj. syringe IV PRN (11:37)
[2024-02-02] MEDS ORDERED: ciprofloxacin 0.3% 2.5ml ophthalmic solution EACHEYE SCH (17:00)
[2024-02-02 18:00] VITALS: BP 171/89; PULSE 68; RESP 16; TEMP 98.3; O2SAT 98
[2024-02-02 22:00] VITALS: BP 173/88; PULSE 94; RESP 18; TEMP 98.1; O2SAT 93
[2024-02-02 22:30] VITALS: BP 152/80
[2024-02-03 06:00] VITALS: BP 165/86; PULSE 64; RESP 15; TEMP 98; O2SAT 97
[2024-02-03 06:28] LABS: BASOPHILS # (AUTO) 0.1 X10'3 (0-0.2); BASOPHILS % (AUTO) 1.9 % (0-1); EOSINOPHILS # (AUTO) 0.6 X10'3 (0-0.9); EOSINOPHILS % (AUTO) 9.8 % (0-6); HEMATOCRIT 32.5 % (42.0-52.0); LYMPHOCYTES # (AUTO) 1.8 X10'3 (1.1-4.8); LYMPHOCYTES % (AUTO) 26.6 % (21-51); MEAN CORPUSCULAR HEMOGLOBIN 29.4 PG (27.0-31.0); MEAN CORPUSCULAR VOLUME 86.6 FL (78-98); MONOCYTES # (AUTO) 0.6 X10'3 (0-0.9); MONOCYTES % (AUTO) 9.8 % (2-12); NEUTROPHILS # (AUTO) 3.4 X10'3 (1.8-7.7); NEUTROPHILS % (AUTO) 51.9 % (42-75); PLATELET COUNT 168 X10'3 (140-440); RED BLOOD COUNT 3.75 X10'6 (4.70-6.10); RED CELL DISTRIBUTION WIDTH 13.6 % (11.5-14.5); WHITE BLOOD COUNT 6.6 X10'3 (4.5-11.0)
[2024-02-03 06:57] LABS: ALANINE AMINOTRANSFERASE 16 U/L (12-78); ALBUMIN 3.2 G/DL (3.4-5.0); ALBUMIN/GLOBULIN RATIO 0.9 (1.1-1.5); ALKALINE PHOSPHATASE 75 IU/L (46-116); ANION GAP 10 (8-16); ASPARTATE AMINO TRANSFERASE 27 U/L (10-37); BILIRUBIN,TOTAL 1.1 MG/DL (0.1-1.0); BLOOD UREA NITROGEN 27 MG/DL (7-18); BUN/CREATININE RATIO 18.5 (10.0-20.0); CALCIUM 8.6 MG/DL (8.5-10.1); CHLORIDE 103 MMOL/L (99-107); CREATININE 1.46 MG/DL (0.60-1.10); GLUCOSE 85 MG/DL (70-104); MAGNESIUM 1.6 MG/DL (1.5-2.4); POTASSIUM 4.1 MMOL/L (3.5-5.1); SODIUM 137 MMOL/L (135-145); TOTAL CARBON DIOXIDE 24.3 MMOL/L (24-32); TOTAL PROTEIN 6.8 G/DL (6.4-8.2); eCRCL 54 ML/MIN; eGFR 48 ML/MIN
[2024-02-03 10:00] VITALS: BP 119/65; PULSE 76; RESP 16; TEMP 97.4; O2SAT 96
[2024-02-03] MEDS: duloxetine 30mg CAPSULE.DR PO SCH (14:46)
[2024-02-03 18:00] VITALS: BP 125/76; PULSE 79; RESP 17; TEMP 97.4; O2SAT 98
[2024-02-03 20:00] VITALS: BP_SYST 150; BP_SYST 151; BP_DIAS 73; BP_DIAS 74; PULSE 73; PULSE 75; RESP 17; O2SAT 98
[2024-02-04] VITALS (7 sets, daily range): BP systolic 116–167; BP diastolic 63–84; PULSE 57–77; RESP 13–20; TEMP 97.7–98.6; O2SAT 94–98
[2024-02-04 06:30] LABS: BASOPHILS # (AUTO) 0.2 X10'3 (0-0.2); HEMOGLOBIN 11.8 g/dl (14.0-17.9)
[2024-02-04 06:35] LABS: EOSINOPHILS # (AUTO) 0.7 X10'3 (0-0.9); EOSINOPHILS % (AUTO) 10.9 % (0-6); HEMATOCRIT 35.4 % (42.0-52.0); LYMPHOCYTES # (AUTO) 1.5 X10'3 (1.1-4.8); LYMPHOCYTES % (AUTO) 23.1 % (21-51); MEAN CORPUSCULAR HEMOGLOBIN 29.1 PG (27.0-31.0); MEAN CORPUSCULAR HGB CONC 33.4 g/dL (33.0-36.5); MEAN CORPUSCULAR VOLUME 87.1 FL (78-98); MEAN PLATELET VOLUME 8.3 FL (7.4-10.4); MONOCYTES # (AUTO) 0.7 X10'3 (0-0.9); MONOCYTES % (AUTO) 10.5 % (2-12); NEUTROPHILS # (AUTO) 3.5 X10'3 (1.8-7.7); NEUTROPHILS % (AUTO) 52.8 % (42-75); PLATELET COUNT 152 X10'3 (140-440); RED BLOOD COUNT 4.06 X10'6 (4.70-6.10); RED CELL DISTRIBUTION WIDTH 13.6 % (11.5-14.5); WHITE BLOOD COUNT 6.7 X10'3 (4.5-11.0)
[2024-02-04 07:03] LABS: ALANINE AMINOTRANSFERASE 18 U/L (12-78); ALBUMIN 3.3 G/DL (3.4-5.0); ALBUMIN/GLOBULIN RATIO 0.9 (1.1-1.5); ALKALINE PHOSPHATASE 75 IU/L (46-116); ANION GAP 9 (8-16); ASPARTATE AMINO TRANSFERASE 39 U/L (10-37); BILIRUBIN,TOTAL 0.9 MG/DL (0.1-1.0); BLOOD UREA NITROGEN 24 MG/DL (7-18); BUN/CREATININE RATIO 17.4 (10.0-20.0); CALCIUM 8.5 MG/DL (8.5-10.1); CHLORIDE 102 MMOL/L (99-107); CREATININE 1.38 MG/DL (0.60-1.10); GLUCOSE 103 MG/DL (70-104); SODIUM 135 MMOL/L (135-145); TOTAL CARBON DIOXIDE 23.8 MMOL/L (24-32); TOTAL PROTEIN 7.1 G/DL (6.4-8.2); eCRCL 57 ML/MIN; eGFR 51 ML/MIN
[2024-02-04 07:06] LABS: POTASSIUM 4.2 MMOL/L (3.5-5.1)
[2024-02-04] MEDS: HYDROcodone/acetaminophen 5mg/325mg tablet PO PRN (16:41)
[2024-02-04] MEDS ORDERED: OLANZapine 2.5MG tablet PO SCH (20:20)
[2024-02-05] MEDS: mag hydrox/Alum hydrox/simeth 30ml oral suspension PO PRN (05:49)
[2024-02-05] MEDS: magnesium hydroxide 30ml (MOM) UD suspension PO PRN (07:53)
[2024-02-05 08:00] VITALS: RESP 16; O2SAT 96
[2024-02-05 10:00] VITALS: BP 169/87; PULSE 74; RESP 16; TEMP 97.2; O2SAT 95
[2024-02-05] MEDS ORDERED: bisacodyl 10mg suppository rectal RC PRN (12:55)
[2024-02-05] MEDS: normal saline 1000ml 1,000 ML IV SCH (15:10)
[2024-02-05 16:20] LABS: BASOPHILS # (AUTO) 0.1 X10'3 (0-0.2); BASOPHILS % (AUTO) 0.9 % (0-1); EOSINOPHILS # (AUTO) 0.2 X10'3 (0-0.9); EOSINOPHILS % (AUTO) 2.4 % (0-6); HEMATOCRIT 36.3 % (42.0-52.0); HEMOGLOBIN 12.3 g/dl (14.0-17.9); LYMPHOCYTES # (AUTO) 1.1 X10'3 (1.1-4.8); MEAN CORPUSCULAR HEMOGLOBIN 29.4 PG (27.0-31.0); MEAN CORPUSCULAR HGB CONC 33.9 g/dL (33.0-36.5); MEAN CORPUSCULAR VOLUME 86.7 FL (78-98); MEAN PLATELET VOLUME 8.2 FL (7.4-10.4); MONOCYTES # (AUTO) 0.7 X10'3 (0-0.9); MONOCYTES % (AUTO) 7.7 % (2-12); NEUTROPHILS # (AUTO) 7.4 X10'3 (1.8-7.7); PLATELET COUNT 190 X10'3 (140-440); RED BLOOD COUNT 4.18 X10'6 (4.70-6.10); RED CELL DISTRIBUTION WIDTH 13.9 % (11.5-14.5); WHITE BLOOD COUNT 9.6 X10'3 (4.5-11.0)
[2024-02-05 16:36] LABS: ALANINE AMINOTRANSFERASE 28 U/L (12-78); ALBUMIN 3.6 G/DL (3.4-5.0); ALBUMIN/GLOBULIN RATIO 0.9 (1.1-1.5); ALKALINE PHOSPHATASE 85 IU/L (46-116); ANION GAP 8 (8-16); ASPARTATE AMINO TRANSFERASE 42 U/L (10-37); BILIRUBIN,TOTAL 0.9 MG/DL (0.1-1.0); BLOOD UREA NITROGEN 28 MG/DL (7-18); BUN/CREATININE RATIO 17.5 (10.0-20.0); CALCIUM 8.9 MG/DL (8.5-10.1); CHLORIDE 101 MMOL/L (99-107); GLUCOSE 116 MG/DL (70-104); POTASSIUM 4.2 MMOL/L (3.5-5.1); SODIUM 138 MMOL/L (135-145); TOTAL CARBON DIOXIDE 28.6 MMOL/L (24-32); TOTAL PROTEIN 7.6 G/DL (6.4-8.2); eCRCL 49 ML/MIN; eGFR 43 ML/MIN
[2024-02-05 18:00] VITALS: BP 182/95; PULSE 78; RESP 16; TEMP 97.3; O2SAT 97
[2024-02-05] MEDS: magnesium citrate 296ml oral solution PO ONE (18:30)
[2024-02-05] MEDS: polyethylene glycol 3350 17gm powd pack PO SCH (19:54)
[2024-02-05 22:00] VITALS: BP 172/97; PULSE 78; RESP 15; TEMP 98.2; O2SAT 96
[2024-02-06 06:00] VITALS: BP 147/77; PULSE 75; RESP 18; TEMP 98.2; O2SAT 92
[2024-02-06 08:00] VITALS: RESP 18; O2SAT 92
[2024-02-06 10:00] VITALS: BP 151/85; PULSE 94; RESP 20; TEMP 97.2; O2SAT 93
[2024-02-06 18:00] VITALS: BP 159/86; PULSE 80; RESP 16; TEMP 98.1; O2SAT 95
[2024-02-06 22:00] VITALS: BP 167/82; PULSE 76; RESP 16; TEMP 98.3; O2SAT 95
[2024-02-07 06:00] VITALS: BP 168/80; PULSE 59; RESP 17; TEMP 98; O2SAT 95
[2024-02-07 10:00] VITALS: BP 150/77; PULSE 66; RESP 16; TEMP 97.6; O2SAT 95
[2024-02-07 18:00] VITALS: BP 148/77; PULSE 69; RESP 18; TEMP 97.7; O2SAT 96
[2024-02-07 22:00] VITALS: BP 163/74; PULSE 65; RESP 16; TEMP 97.7; O2SAT 97
[2024-02-08 06:00] VITALS: BP 177/93; PULSE 64; RESP 18; TEMP 97.9; O2SAT 97
[2024-02-08 07:43] LABS: BASOPHILS # (AUTO) 0.1 X10'3 (0-0.2); BASOPHILS % (AUTO) 1.2 % (0-1); EOSINOPHILS # (AUTO) 0.5 X10'3 (0-0.9); EOSINOPHILS % (AUTO) 5.5 % (0-6); HEMATOCRIT 33.3 % (42.0-52.0); HEMOGLOBIN 11.6 g/dl (14.0-17.9); LYMPHOCYTES # (AUTO) 1.5 X10'3 (1.1-4.8); LYMPHOCYTES % (AUTO) 18.7 % (21-51); MEAN CORPUSCULAR HEMOGLOBIN 30.1 PG (27.0-31.0); MEAN CORPUSCULAR HGB CONC 34.9 g/dL (33.0-36.5); MEAN CORPUSCULAR VOLUME 86.2 FL (78-98); MEAN PLATELET VOLUME 8.4 FL (7.4-10.4); MONOCYTES # (AUTO) 0.8 X10'3 (0-0.9); MONOCYTES % (AUTO) 9.2 % (2-12); NEUTROPHILS # (AUTO) 5.4 X10'3 (1.8-7.7); NEUTROPHILS % (AUTO) 65.4 % (42-75); PLATELET COUNT 178 X10'3 (140-440); RED BLOOD COUNT 3.86 X10'6 (4.70-6.10); RED CELL DISTRIBUTION WIDTH 13.8 % (11.5-14.5); WHITE BLOOD COUNT 8.2 X10'3 (4.5-11.0)
[2024-02-08] MEDS: amLODIPine 5mg tablet PO SCH (07:59)
[2024-02-08 08:00] VITALS: RESP 18; O2SAT 97
[2024-02-08 08:02] LABS: ALANINE AMINOTRANSFERASE 16 U/L (12-78); ALBUMIN 3.3 G/DL (3.4-5.0); ALBUMIN/GLOBULIN RATIO 0.9 (1.1-1.5); ALKALINE PHOSPHATASE 71 IU/L (46-116); ANION GAP 8 (8-16); ASPARTATE AMINO TRANSFERASE 23 U/L (10-37); BILIRUBIN,TOTAL 1.2 MG/DL (0.1-1.0); BLOOD UREA NITROGEN 25 MG/DL (7-18); BUN/CREATININE RATIO 18.2 (10.0-20.0); CALCIUM 8.9 MG/DL (8.5-10.1); CHLORIDE 101 MMOL/L (99-107); CREATININE 1.37 MG/DL (0.60-1.10); GLUCOSE 93 MG/DL (70-104); POTASSIUM 4.3 MMOL/L (3.5-5.1); SODIUM 136 MMOL/L (135-145); TOTAL CARBON DIOXIDE 27.1 MMOL/L (24-32); eCRCL 57 ML/MIN; eGFR 52 ML/MIN
[2024-02-08 10:00] VITALS: BP 139/85; PULSE 74; RESP 16; TEMP 98.3; O2SAT 96
[2024-02-08 18:30] VITALS: BP 159/78; PULSE 72; RESP 16; TEMP 97.6; O2SAT 97
== END 2024-02-08 20:10 | DRG 602 ==
LOC: ER 10:06 → ORTHO 4S 19:46
PROVIDERS: ADMIT Internal Medicine Pulmonary Disease; ATTEND Internal Medicine
PROC: B32T1ZZ Computerized Tomography (CT Scan) of Left Pulmonary Artery using Low Osmolar Contrast (ICD-10-PCS; 2024-01-30)
PROC: B3201ZZ Computerized Tomography (CT Scan) of Thoracic Aorta using Low Osmolar Contrast (ICD-10-PCS; 2024-01-30)
PROC: B32S1ZZ Computerized Tomography (CT Scan) of Right Pulmonary Artery using Low Osmolar Contrast (ICD-10-PCS; 2024-01-30)
PROC: 4A00X4Z Measurement of Central Nervous Electrical Activity, External Approach (ICD-10-PCS; principal; 2024-01-31)
DX: L03.116 Cellulitis of left lower limb (principal); N17.0 Acute kidney failure with tubular necrosis; I12.9 Hypertensive chronic kidney disease with stage 1 through stage 4 chronic kidney disease, or unspecified chronic kidney disease; F32.9 Major depressive disorder, single episode, unspecified; E78.00 Pure hypercholesterolemia, unspecified; N18.9 Chronic kidney disease, unspecified; L03.115 Cellulitis of right lower limb; E78.5 Hyperlipidemia, unspecified; E11.22 Type 2 diabetes mellitus with diabetic chronic kidney disease; F03.90 Unspecified dementia, unspecified severity, without behavioral disturbance, psychotic disturbance, mood disturbance, and anxiety; S93.402A Sprain of unspecified ligament of left ankle, initial encounter
CPT/HCPCS: 36415; 70450; 70551; 71045; 71275; 74018; 80048; 80053; 80305; 81001; 82140; 82948; 83605; 83735; 84145; 84484; 85025; 85379; 85651; 86140; 87040; 87081; 87502; 87503; 93005; 93926; 93971; 95816; 97110; 97116; 97161; 97530; 99285; A4349; A6258; A6590; C1758; G0378; J0295; J1644; J1815; J2270; J2405; J3490; J7030; J7120; Q9967